=== PATIENT | female | born 1975 | race American Indian/Alaskan Native ===

== ENCOUNTER 2016-11-15 09:09 | Outpatient (CLI) | payer MEDICAID ==
--- NOTE | 2016-11-15 10:46 | XRay Report ---
LUMBAR SPINE RADIOGRAPHS: INDICATION: Lumbar radiculitis. COMPARISON: None similar. FINDINGS: AP and lateral lumbar spine radiographs demonstrate normal vertebral body stature and alignment. Mild lumbar degenerative spurring at some levels, more so inferiorly. Lower lumbar facet arthropathy also suspected. A transitional lumbosacral vertebra not excluded. Well-formed disc heights fairly preserved. Clear visualized lung bases. Nonobstructive bowel gas pattern. Intact SI joints. CONCLUSION: No acute lumbar radiographic abnormality, as described. Thank you for the opportunity to participate in this patient's care.
== END 2016-11-15 09:10 | disposition home or self-care (01) ==
LOC: XRAY 09:09
DX: M54.16 Radiculopathy, lumbar region (principal)
CPT/HCPCS: 72100

== ENCOUNTER 2019-01-21 05:05 | Emergency (ER) | payer MEDICAID ==
[2019-01-21] MEDS ORDERED: DUONEB *Not for PRN Use IH ONE ×2 (05:15→08:41)
--- NOTE | 2019-01-21 08:12 | XRay Report ---
ROUTINE CHEST, TWO VIEWS: HISTORY: Shortness of breath. The trachea, heart, mediastinal contour, lung delgado and bony thorax are unremarkable. IMPRESSION: Unremarkable chest x-ray.
[2019-01-21] MEDS ORDERED: DELTASONE PO ONE (08:41)
[2019-01-21] MEDS ORDERED: ATIVAN PO ONE (08:41)
--- NOTE | 2019-01-21 08:43 | Emergency Department Report ---
ED Asthma HPI - General Chief Complaint: Dyspnea/Respdistress Stated Complaint: SOB/STRESS/ASTHMA/COUGH/NIGHT SWEATS Time Seen by Provider: 01/21/19 08:35 Source: patient Mode of arrival: Ambulatory Limitations: No Limitations - History of Present Illness Initial Comments: Patient is a 43-year-old [place] female who states she's had a cough congestion for the last 2 weeks. Patient states she had does have a history of asthma and does have albuterol however she does not feel as though her cough is improving. Patient states her cough is productive of clear to yellow sputum. Patient denies any fever nausea vomiting or sore throat at this time. Patient also states she is very anxious his run out of her Ativan which she takes for chronic anxiety. Patient states she still does have a prescription for Lexapro. Patient denies any homicidal suicidal thoughts at this time. MD Complaint: "asthma attack" - Related Data Home Medications Medication Instructions Recorded Confirmed Last Taken ALBUTEROL Inhaler(NF) [VENTOLIN 90 mcg INHALATION PRN PRN 03/26/18 03/26/18 03/19/18 Inhaler(NF)] Previous Rx's Medication Instructions Recorded Last Taken Type Albuterol [Proventil Tab] 2 mg PO BID PRN #60 tablet 06/05/16 Unknown Rx Aspirin [Aspirin BABY CHEW TAB] 81 mg PO QDAY #30 tab.chew 06/05/16 Unknown Rx Cyclobenzaprine [Flexeril 10 MG 5 mg PO Q8H PRN #30 tablet 06/05/16 Unknown Rx TAB] HYDROcodone/APAP 10-325 [[place] 1 each PO Q4H PRN #20 tablet 06/05/16 Unknown Rx 10-325 mg TAB] Lisinopril [Zestril TAB] 10 mg PO QDAY #30 tablet 06/05/16 03/25/18 Rx Metoprolol [Lopressor TAB] 25 mg PO BID #60 tablet 06/05/16 03/25/18 Rx Ranitidine HCl [Zantac 150 MG TAB] 150 mg PO PRN #60 06/05/16 Unknown Rx ALBUTEROL Inhaler (OR & NICU) 2 puff IH QID PRN #1 inhalation 01/21/19 Unknown Rx [ProAir HFA Inhaler] Azithromycin [Zithromax Z-LILLY] 250 mg PO DAILY #6 tablet 01/21/19 Unknown Rx LORazepam [Ativan] 0.5 mg PO Q6H PRN #10 tablet 01/21/19 Unknown Rx guaiFENesin/CODEINE [Robitussin AC] 5 ml PO TID PRN #100 oral.liqd 01/21/19 Unknown Rx predniSONE [Deltasone] 20 mg PO QDAY #5 tab 01/21/19 Unknown Rx Allergies Allergy/AdvReac Type Severity Reaction Status Date / Time No Known Allergies Allergy Verified 07/30/13 08:57 ED Review of Systems ROS: Stated complaint: SOB/STRESS/ASTHMA/COUGH/NIGHT SWEATS Other details as noted in HPI Comment: All other systems reviewed and negative ED Past Medical Hx - Past Medical History Previous Medical History?: Yes Hx Hypertension: Yes Hx GERD: Yes Hx Asthma: Yes Additional medical history: Sleep apnea - Surgical History Past Surgical History?: Yes Additional Surgical History: . Ovarion cyst removed last year. gstric sleeve. - Social History Smoking Status: Current Every Day Smoker Substance Use Type: None - Medications Home Medications: Home Medications Medication Instructions Recorded Confirmed Last Taken Type Albuterol [Proventil Tab] 2 mg PO BID PRN #60 tablet 06/05/16 03/27/18 Unknown Rx Aspirin [Aspirin BABY CHEW TAB] 81 mg PO QDAY #30 tab.chew 06/05/16 03/27/18 Unknown Rx Cyclobenzaprine [Flexeril 10 MG 5 mg PO Q8H PRN #30 tablet 06/05/16 03/27/18 Unknown Rx TAB] HYDROcodone/APAP 10-325 [[place] 1 each PO Q4H PRN #20 tablet 06/05/16 03/27/18 Unknown Rx 10-325 mg TAB] Lisinopril [Zestril TAB] 10 mg PO QDAY #30 tablet 06/05/16 03/27/18 03/25/18 Rx Metoprolol [Lopressor TAB] 25 mg PO BID #60 tablet 06/05/16 03/27/18 03/25/18 Rx Ranitidine HCl [Zantac 150 MG TAB] 150 mg PO PRN #60 06/05/16 03/27/18 Unknown Rx ALBUTEROL Inhaler(NF) [VENTOLIN 90 mcg INHALATION PRN PRN 03/26/18 03/26/18 03/19/18 History Inhaler(NF)] ALBUTEROL Inhaler (OR & NICU) 2 puff IH QID PRN #1 inhalation 01/21/19 Unknown Rx [ProAir HFA Inhaler] Azithromycin [Zithromax Z-LILLY] 250 mg PO DAILY #6 tablet 01/21/19 Unknown Rx LORazepam [Ativan] 0.5 mg PO Q6H PRN #10 tablet 01/21/19 Unknown Rx guaiFENesin/CODEINE [Robitussin AC] 5 ml PO TID PRN #100 oral.liqd 01/21/19 Unknown Rx predniSONE [Deltasone] 20 mg PO QDAY #5 tab 01/21/19 Unknown Rx ED Physical Exam - General Limitations: No Limitations General appearance: alert, in no apparent distress - Head Head exam: Present: atraumatic, normocephalic - Eye Eye exam: Present: normal appearance - ENT ENT exam: Present: mucous membranes moist - Neck Neck exam: Present: normal inspection - Respiratory Respiratory exam: Present: wheezes. Absent: normal lung sounds bilaterally, respiratory distress, rales, rhonchi, stridor, accessory muscle use - Cardiovascular Cardiovascular Exam: Present: regular rate, normal rhythm, normal heart sounds. Absent: systolic murmur, diastolic murmur, rubs, gallop - GI/Abdominal GI/Abdominal exam: Present: soft, normal bowel sounds. Absent: distended, tenderness, guarding, rebound - Extremities Exam Extremities exam: Present: normal inspection - Back Exam Back exam: Present: normal inspection - Neurological Exam Neurological exam: Present: alert, oriented X3 - Psychiatric Psychiatric exam: Present: normal affect, normal mood - Skin Skin exam: Present: warm, dry, intact, normal color. Absent: rash ED Course Vital Signs 01/21/19 01/21/19 01/21/19 05:07 05:09 05:25 Temperature 97.8 F 97.8 F Pulse Rate 76 77 Pulse Rate [ 77 Anterior Bilateral Throughout] Respiratory 18 18 Rate Respiratory 20 Rate [Anterior Bilateral Throughout] Blood Pressure 150/100 150/100 O2 Sat by Pulse 96 Oximetry 01/21/19 05:35 Temperature Pulse Rate Pulse Rate [ 80 Anterior Bilateral Throughout] Respiratory Rate Respiratory 18 Rate [Anterior Bilateral Throughout] Blood Pressure O2 Sat by Pulse Oximetry ED Medical Decision Making - Medical Decision Making Patient received 2 DuoNeb as well in the emergency department and is feeling much improved. Her wheezing has decreased. Patient to be discharged home with steroids. The patient also has a nebulizer at home and will be given a prescription for nebulizer treatment. Patient also is concerned about the fact she doesn't have prescription for her Ativan prescription will be given for a few pills until she sees her primary care Critical care attestation.: If time is entered above; I have spent that time in minutes in the direct care of this critically ill patient, excluding procedure time. ED Disposition Clinical Impression: Anxiety reaction Acute asthma exacerbation Qualifiers: Asthma severity: moderate Asthma persistence: unspecified Qualified Code(s): J45.901 - Unspecified asthma with (acute) exacerbation Disposition: DC-01 TO HOME OR SELFCARE Is pt being admited?: No Does the pt Need Aspirin: No Condition: Stable Instructions: Asthma (ED) Referrals: FERNANDO LUA MD [Primary Care Provider] - 3-5 Days Time of Disposition: 09:41
[2019-01-21 09:55] VITALS: BP 139/82
== END 2019-01-21 09:53 | disposition home or self-care (01) ==
LOC: ED 05:05
DX: F41.1 Generalized anxiety disorder (principal); J45.901 Unspecified asthma with (acute) exacerbation; I10 Essential (primary) hypertension; K21.9 Gastro-esophageal reflux disease without esophagitis; J45.909 Unspecified asthma, uncomplicated; F17.200 Nicotine dependence, unspecified, uncomplicated
CPT/HCPCS: 71046; 94640; 99283; J7512

== ENCOUNTER 2019-03-24 11:34 | Emergency (ER) | payer MEDICAID ==
--- NOTE | 2019-03-24 11:58 | Emergency Department Report ---
Blank Doc - Documentation Documentation: this is a 43-year-old female that presents with a repeat quant test. Was seen on the 18th of this month and was diagnosed with mischarge. Stated is about 5 weeks . This initial assessment/diagnostic orders/clinical plan/treatment(s) is/are subject to change based on patient's health status, clinical progression and re- assessment by fellow clinical providers in the ED. Further treatment and workup at subsequent clinical providers discretion. Patient/guardians urged not to elope from the ED as their condition may be serious if not clinically assessed and managed. Initial orders include: 1- Patient sent to [facility] for further evaluation and treatment 2- labs
[2019-03-24 12:02] VITALS: BP 149/77
--- NOTE | 2019-03-24 15:08 | Emergency Department Report ---
Chief Complaint: Medical Clearance Stated Complaint: 5 WKS /BLEEDING/PAIN Time Seen by Provider: 03/24/19 11:57 - HPI History of Present Illness: This is a 43-year-old female who presents to ED returning for quantitative check after 2 days of mallet vaginal bleeding. Patient states that bleeding is still the same. She admits mild pelvic cramping no other symptoms. - ROS Review of Systems: Denies all other systems. - Exam Vital Signs: Vital Signs 03/24/19 11:57 Temperature 98.5 F Pulse Rate 72 Respiratory 16 Rate Blood Pressure 149/77 O2 Sat by Pulse 100 Oximetry Physical Exam: GENERAL: Alert and oriented x3, no apparent distress, Normal Gait, atraumatic. HEAD: Head is normocephalic and a-traumatic. ABDOMEN: No organomegaly was noted,Positive bowel sounds, soft, and non- distended. . Nontender to palpation on all Quadrants, NO CVA tenderness. BACK: Full range of motion, no spinal tenderness, nontender to palpation. SKIN: Warm and dry, No lesions, No ulceration or induration present. MSE screening note: Focused history and physical exam performed. Due to findings the following was ordered: ED Medical Decision Making - Medical Decision Making 43-year-old patient returns for recheck of quant levels Patient states that when she went to the bathroom today the bleeding stopped. Quant level 44665 has doubled from last visit 2 days ago. Discussed this with the patient and her spouse who is with her today. I discussed with the patient to avoid intercourse until follow-up with [employer]ENT[employer] IMP[employer] TEACHER. I discussed the patient according to the labs this is a viable due to increasing levels of quant. Patient is aware of bleeding precautions which were given to her today. ED Disposition for MSE Clinical Impression: Vaginal bleeding during Disposition: DC-01 TO HOME OR SELFCARE Is pt being admited?: No Does the pt Need Aspirin: No Condition: Stable Instructions: Threatened Miscarriage (ED), (ED) Additional Instructions: Make sure to follow up with the [employer] IMP[employer] TEACHER as discussed. Take all your medications as you've been prescribed. If you have any worsening symptoms or develop new symptoms please return to ED immediately. Prescriptions: Pnv No.121/Iron/Folic Acid [ Multivitamin Tablet] 1 each PO DAILY #40 tablet Referrals: FERNANDO LUA MD [Primary Care Provider] - 3-5 Days CALVIN ROBIN MD [Referring] - 3-5 Days NEERU ROBIN MD [Staff Physician] - 3-5 Days Forms: Accompanied Note, Work/School Release Form(ED) Time of Disposition: 15:22
--- NOTE | 2019-03-24 15:55 | Event Note ---
Face to Face: For this encounter I have reviewed the PA/CALL WORKER documentation, treatment plan, medical decision making, and I had face to face time with this patient. Patient is a 43-year-old female who was here 2 days ago for vaginal bleeding. Quant was 7700 at that time. Repeat today has almost doubled. Patient's Quant is 13,000. Patient's bleeding has stopped. Patient is stable for discharge. I agree with the documentation from Ms Qureshi
== END 2019-03-24 16:52 | disposition home or self-care (01) ==
LOC: ED 11:34
DX: O46.91 Antepartum hemorrhage, unspecified, first trimester (principal); Z3A.01 Less than 8 weeks gestation of pregnancy
CPT/HCPCS: 36415; 84702; 99283